=== PATIENT | male | born 1950 | race Caucasian/White ===

== ENCOUNTER 2022-12-09 06:11 | Day surgery (SDC) | payer OTHER, MEDICARE ==
[2022-12-04 14:45] VITALS: BMI 40.7
[2022-12-09] MEDS ORDERED: CEFAZOLIN 2 GM in DEXTROSE 5%-WATER - 50 ML IVPB ONE (06:25)
[2022-12-09] MEDS ORDERED: CELECOXIB 200 MG CAPSULE PO ONE (06:25)
[2022-12-09] MEDS ORDERED: TRANEXAMIC ACID 1000 MG/10 ML VIAL IVPUSH ONE (06:25)
[2022-12-09] MEDS ORDERED: ceFAZolin SODIUM 1 GM VIAL ONE (07:15)
[2022-12-09] MEDS ORDERED: VANCOMYCIN 1,000 MG VIAL (RESTRICTED TO ID ONLY) ONE (07:16)
[2022-12-09] MEDS ORDERED: THROMBIN (BOVINE) 5,000 UNIT VIAL TP ONE (07:16)
[2022-12-09] MEDS ORDERED: FENTANYL CITRATE/PF 50 MCG/ML VIAL ONE (07:41)
[2022-12-09] MEDS ORDERED: ROPIVACAINE HCL 0.5% 30ML VIAL ONE (07:42)
[2022-12-09] MEDS ORDERED: SODIUM CHLORIDE 0.9% P/F 10 ML VIAL IJ ONE (07:42)
[2022-12-09] MEDS ORDERED: MIDAZOLAM HCL 2 MG/2 ML SINGLE DOSE VIAL ONE ×3 (07:42→09:10)
[2022-12-09] MEDS ORDERED: ONDANSETRON 4 MG/2 ML VIAL IVPUSH PRN ×2 (07:55→10:22)
[2022-12-09] MEDS ORDERED: LACTATED RINGERS SOLUTION 1,000 ML IV SCH ×2 (08:00→10:30)
[2022-12-09] MEDS ORDERED: SUCCINYLCHOLINE CHLORIDE 200 MG/10 ML SYRINGE ONE (08:28)
[2022-12-09] MEDS ORDERED: PROPOFOL 20 ML ONE (08:28)
[2022-12-09] MEDS ORDERED: BUPIVICAINE 0.25%/MORPH PF/KETOROLAC - 51ML DISP.SYRINGE IA ONE (09:09)
[2022-12-09] MEDS ORDERED: HYDROCHLOROTHIAZIDE 12.5 MG CAPSULE (FP) PO SCH (10:00)
[2022-12-09] MEDS ORDERED: MULTIVITAMINS (DAILY MVI) TABLET (FP) PO SCH (10:00)
[2022-12-09] MEDS ORDERED: PATIENT'S OWN MEDICATION (NON-FORMULARY) (Lisinopril [Lisinopril] 30 MG Tablet) PO SCH (10:00)
[2022-12-09] MEDS ORDERED: SENNOSIDES/DOCUSATE COMBO (SENNA PLUS) TABLET (UD) PO SCH (10:00)
[2022-12-09] MEDS ORDERED: PANTOPRAZOLE 40 MG TABLET PO SCH (10:00)
[2022-12-09] MEDS ORDERED: LISINOPRIL 10 MG, LISINOPRIL 20 MG PO SCH (10:00)
[2022-12-09] MEDS ORDERED: ACETAMINOPHEN 1000 MG/100 ML BAG IVPB ONE (10:22)
[2022-12-09] MEDS ORDERED: oxyCODONE HCL 5 MG TABLET PO PRN ×2 (10:22)
[2022-12-09 11:45] VITALS: RESP 18
[2022-12-09] MEDS ORDERED: DEXTROSE 5%-WATER - 50 ML IVPB ONE (15:26)
[2022-12-09] MEDS ORDERED: CEFAZOLIN SODIUM 2 GM in DEXTROSE 5%-WATER - 50 ML IVPB SCH (16:00)
[2022-12-09 16:39] VITALS: BP 151/52; PULSE 73; TEMP 98
[2022-12-09] MEDS ORDERED: ATORVASTATIN CA 40 MG TABLET (FP) PO SCH (22:00)
[2022-12-09] MEDS ORDERED: SAXAGLIPTIN HCL PO SCH (22:00)
[2022-12-09] MEDS ORDERED: [UNRECOGNIZED DRUG - OTHER] PO SCH (22:00)
[2022-12-09] MEDS ORDERED: METFORMIN HCL PO SCH (22:00)
[2022-12-09] MEDS ORDERED: GLIMEPIRIDE 2 MG TABLET PO SCH (22:00)
[2022-12-10] MEDS ORDERED: ASPIRIN 325 MG TABLET PO SCH (08:00)
== END 2022-12-09 17:15 | disposition home health service (06) ==
LOC: FASUSAT 06:11 → FM/S 11:30 → FASUSAT 17:15
PROVIDERS: ATTEND Orthopaedic Surgery
PROC: 8E0Y0CZ Robotic Assisted Procedure of Lower Extremity, Open Approach (ICD-10-PCS; 2022-12-09)
PROC: 0SRD0L9 Replacement of Left Knee Joint with Medial Unicondylar Synthetic Substitute, Cemented, Open Approach (ICD-10-PCS; principal; 2022-12-09 08:37)
DX: M17.12 Unilateral primary osteoarthritis, left knee (principal)
CPT/HCPCS: 20985; 27446; C1776; S2900; 73560-TC-LT-FY; 82962; 94760; 97116-GP; 97162-GP; C1889